=== PATIENT | male | born 1955 | race American Indian/Alaskan Native ===

== ENCOUNTER 2018-12-24 08:58 | Outpatient (CLI) | payer MEDICARE | END 2018-12-24 08:59 | disposition home or self-care (01) | LOC: C.LAB 08:58 | DX: E11.65 Type 2 diabetes mellitus with hyperglycemia (principal); E78.00 Pure hypercholesterolemia, unspecified; D50.8 Other iron deficiency anemias; E53.8 Deficiency of other specified B group vitamins ==

== ENCOUNTER 2018-12-24 09:05 | Outpatient (CLI) | payer MEDICARE | END 2018-12-24 09:06 | disposition home or self-care (01) | LOC: C.LAB 09:05 | DX: Z12.5 Encounter for screening for malignant neoplasm of prostate (principal) ==

== ENCOUNTER 2019-01-24 09:22 | Inpatient (IN) | payer MEDICARE ==
[2019-01-24] MEDS ORDERED: Sodium Chloride 0.9% 1,000 ML IV ONE (09:59)
[2019-01-24 10:22] LABS: BASO % 0.7 % (0.0-2.0); EOS # 0.1 K/uL (0.0-0.7); EOS % 1.9 % (0.0-4.0); HEMOGLOBIN 11.5 g/dL (12.0-18.0); LYMPH # 1.2 K/uL (1.0-4.3); LYMPH % 24.6 % (20.0-40.0); MEAN CELL VOLUME 73.4 fL (80.0-94.0); MEAN CORPUSCULAR HEMOGLOBIN 23.3 pg (27.0-31.0); MEAN CORPUSCULAR HGB CONC 31.8 g/dL (33.0-37.0); MEAN PLATELET VOLUME 8.7 fL (7.2-11.7); MONO # 0.5 K/uL (0.0-0.8); MONO % 9.8 % (0.0-10.0); NEUT # 3.2 K/uL (1.8-7.0); NRBC % 0.1 % (0.0-2.0); RBC 4.93 Mil/uL (4.40-5.90); RED CELL DISTRIBUTION WIDTH 14.1 % (11.5-14.5)
[2019-01-24] MEDS ORDERED: Sodium Chloride 0.9% 1,000 ML ONE (10:22)
[2019-01-24 10:31] LABS: PROTHROMBIN TIME 10.4 SECONDS (9.7-12.2)
--- NOTE | 2019-01-24 10:32 | C.PDOC ---
History Of Present Illness 63 year old male w/PMHx of HTN, NIDDM, hypercholesterolemia presents to the ED for evaluation of intermittent chest pain which began yesterday evening " was watching TV". Patient reports pain associated with intermittent dizziness. He describes his symptoms as a painful/burning sensation in middle of chest. Otherwise, patient denies recent illness, fever, chills, headache, neck pain, shortness of breath, dypsnea, wheezing, palpitation, diaphoresis, radiation of pain, denies nausea, vomiting, back pian, denies any aotehr active complaints. AT present time, appears comfortable, not in any apparent distress. Pt admits, had stress test in past, last one was 8 mo ago- normal results. Time Seen by Provider: 01/24/19 09:37 Chief Complaint (Nursing): Chest Pain History Per: Patient History/Exam Limitations: no limitations Onset/Duration Of Symptoms: Hrs, Intermittent Episodes Current Symptoms Are (Timing): Still Present Quality: Burning, "Pain" Associated Symptoms: denies: Nausea Additional History Per: Patient Past Medical History Reviewed: Historical Data, Nursing Documentation, Vital Signs Vital Signs: Last Vital Signs Temp 98.2 F 01/24/19 09:55 Pulse Resp BP Pulse Ox - Medical History PMH: HTN, Hypercholesterolemia Surgical History: Back Surgery (LUMBAR LAMINECTOMY) Family History: States: Unknown Family Hx - Social History Hx Alcohol Use: No Hx Substance Use: No - Immunization History Hx Tetanus Toxoid Vaccination: No Hx Influenza Vaccination: No Hx Pneumococcal Vaccination: No Review Of Systems Constitutional: Negative for: Fever, Chills Cardiovascular: Positive for: Chest Pain Respiratory: Negative for: Cough, Shortness of Breath Gastrointestinal: Negative for: Nausea, Vomiting Neurological: Positive for: Dizziness. Negative for: Weakness, Numbness Physical Exam - Physical Exam Appears: Non-toxic, No Acute Distress Skin: Normal Color, Warm, Dry Head: Normacephalic Eye(s): bilateral: PERRL Oral Mucosa: Moist Neck: Supple Chest: Symmetrical, No Deformity, Tenderness (reproducible retrosternal tenderness on palpation ) Cardiovascular: Rhythm Regular, No Murmur, No JVD Respiratory: No Decreased Breath Sounds, No Accessory Muscle Use, No Rales, No Rhonchi, No Stridor, No Wheezing Gastrointestinal/Abdominal: Soft, No Tenderness, No Distention, No Guarding, No Rebound Back: No CVA Tenderness Extremity: Normal ROM, No Pedal Edema, Capillary Refill (less than 2 seconds ), No Swelling Neurological/Psych: Oriented x3, Normal Speech, Normal Cognition ED Course And Treatment - Laboratory Results Result Diagrams: 01/24/19 10:17 01/24/19 10:17 Lab Results: PT 10.4 SECONDS (9.7-12.2) 01/24/19 10:17 INR 1.0 01/24/19 10:17 APTT 29 SECONDS (21-34) 01/24/19 10:17 Lab Interpretation: Normal ECG: Interpreted By Me, Viewed By Me ECG Rhythm: Sinus Rhythm ECG Interpretation: Normal Interpretation Of ECG: SR@74/min, NAD, no acute T wave or ST-T changes - Radiology CXR: Interpreted by Me, Viewed By Me, Read By Radiologist CXR Interpretation: Yes: No Acute Disease Progress Note: Bloodwork, CXR, EKG ordered and reviewed. Pepcid IVP, Toradol IVP and IV Fluids given. case discussed with pt's PMD and admission arranged with Dx: CP r/o ND based on pt's hx, risk factors, clinical presentation. Disposition - Disposition Disposition: HOSPITALIZED Disposition Time: 11:11 Condition: STABLE - Clinical Impression Clinical Impression: Chest pain - PA / CLIPPER OPERATOR / Resident Statement MD/DO has reviewed & agrees with the documentation as recorded. - Scribe Statement The provider has reviewed the documentation as recorded by the Scribe (Tali Roth) All medical record entries made by the Scribe were at my direction and personal ly dictated by me. I have reviewed the chart and agree that the record accurately reflects my personal performance of the history, physical exam, medical decision making, and the department course for this patient. I have also personally directed, reviewed, and agree with the discharge instructions and disposition.
[2019-01-24 10:34] LABS: ALB/GLOB RATIO 1.6 (1.0-2.1); ALBUMIN 4.4 g/dL (3.5-5.0); ALT/SGPT 18 U/L (21-72); AST/SGOT 24 U/L (17-59); BLOOD UREA NITROGEN 18 mg/dL (9-20); CALCIUM 9.6 mg/dl (8.6-10.4); GFR NON-AFRICAN AMERICAN > 60
--- NOTE | 2019-01-24 10:37 | RAD ---
Date of service: 01/24/2019 PROCEDURE: CHEST RADIOGRAPH, 1 VIEW HISTORY: chest pain COMPARISON: 11/12/2016 FINDINGS: LUNGS: Clear. PLEURA: No pneumothorax or pleural fluid seen. CARDIOVASCULAR: No aortic atherosclerotic calcification present. Normal. OSSEOUS STRUCTURES: No significant abnormalities. VISUALIZED UPPER ABDOMEN: Normal. OTHER FINDINGS: None. IMPRESSION: No active disease.
[2019-01-24 10:46] LABS: B-TYPE NATRIURETIC PEPTIDE 137 pg/mL (0-900)
[2019-01-24 17:01] LABS: CK-MB 0.26 ng/mL (0.0-3.38)
[2019-01-24] MEDS ORDERED: Oxycodone/Acetaminophen 5/325 mg Tab PO ONE (17:30)
[2019-01-24] MEDS: Enoxaparin 60 mg Syringe SC SCH ×2 (18:00→19:00)
[2019-01-24] MEDS ORDERED: Enoxaparin 60 mg Syringe SC SCH (21:00)
[2019-01-24] MEDS: Sodium Chloride 0.9% 1,000 ML IV SCH (21:13)
[2019-01-24] MEDS: (Novolin R) Insulin Human Regular 100 units/ml vial SC SCH (23:00)
--- NOTE | 2019-01-24 23:53 | HP ---
HISTORY OF PRESENT ILLNESS: This is a 63-year-old gentleman with a history of diabetes, hypertension, severe back problems who was brought in with history of chest pain. The patient had a Myoview stress test, and about a year ago, Lexiscan which was unremarkable. Echocardiogram had normal LV systolic function. He was in usual state of health for 2 days when he started to experience chest discomfort, described as burning, no radiation. The pains are more exertional also. REVIEW OF SYSTEMS: CONSTITUTIONAL: Mild fatigue, otherwise, unremarkable. EYES: Wears glasses. EARS: Positive for hearing loss. NECK: No swollen glands. PULMONARY: Negative for cough or hemoptysis. CARDIAC: As mentioned above chest discomfort, shortness of breath on exertion. History of hypertension. GI: Negative for hematemesis or melena. NEUROLOGIC: Occasional headaches. MUSCULOSKELETAL: Severe back problems, joint pains, walks with a cane. PSYCHIATRIC: No evidence of depression. EXTREMITIES: No pedal edema. PAST MEDICAL HISTORY: Positive for diabetes, hypertension, admitted in the past also for chest pain. PAST SURGICAL HISTORY: History of surgery for the back in [facility] and also at [facility]. PHYSICAL EXAMINATION: GENERAL: Shows elderly gentleman who is conscious, alert, well oriented, in no distress. VITAL SIGNS: His blood pressure is 136/70, heart rate of 74 and regular, respiratory rate 12, afebrile. He is 5 feet 11 inches, weighs 190 pounds. HEENT: Head is normal. Eyes, no pallor, no icterus. Mouth normal. NECK: Supple. No thyroid enlargement. LUNGS: Clear to auscultation. HEART: PMI is normal. S1, S2 normal. Soft S4 gallop. Systolic ejection grade 2/6 in the aortic and mitral area. ABDOMEN: Soft. EXTREMITIES: No cyanosis, clubbing, or edema. MUSCULOSKELETAL: surgery in the back. Distal pulses are intact. NEUROLOGIC: No focal signs. LABORATORY DATA: CBC, chemistry was unremarkable as per ER physician. EKG is sinus rhythm. ASSESSMENT: A 63-year-old male, this is second admission for chest pain, the pains are exertional at times. No myocardial infarction. Recommend giving the history of diabetes, hypertension, and unable to walk, uses a cane with severe back problems, we will recommend to have a diagnostic coronary angiogram for definite evaluation. There was some exertional component. The medications at home include amlodipine 5 mg one a day, Benicar 12.5 one a day, Coreg 6.25 twice a day, Metformin 1000 mg twice a day, Protonix, and Zocor 20 mg p.o. one a day. Care of plan was explained to the patient. Manuel Kasper MD
--- NOTE | 2019-01-25 07:22 | CP.PCM.CON ---
History of Present Illness - History of Present Illness History of Present Illness: called by Dr Kasper to perform cardiac cath on patient with ultiple cardiovascular risk factors who presents with unstable angina. NPO after breakfast for cardiac cath today Past Patient History - Past Social History Smoking Status: Never Smoked - CARDIAC Hx Hypercholesterolemia: Yes Hx Hypertension: Yes - ENDOCRINE/METABOLIC Hx Endocrine Disorders: Yes Hx Diabetes Mellitus Type 1: Yes - PSYCHIATRIC Hx Substance Use: No - SURGICAL HISTORY Hx Surgeries: Yes Other/Comment: laminectomy;fusion of the back - ANESTHESIA Hx Anesthesia: Yes Hx Anesthesia Reactions: No Hx Malignant Hyperthermia: No Meds Allergies/Adverse Reactions: Allergies Allergy/AdvReac Type Severity Reaction Status Date / Time No Known Allergies Allergy Verified 01/24/19 09:46 - Medications Medications: Current Medications Acetaminophen (Tylenol 325mg Tab) 650 mg PO QID [facility] Last Admin: 01/24/19 21:12 Dose: 650 mg Amlodipine Besylate (Norvasc) 5 mg PO DAILY [facility] Carvedilol (Coreg) 6.25 mg PO BID [facility] Last Admin: 01/24/19 19:00 Dose: 6.25 mg Enoxaparin Sodium (Lovenox) 60 mg SC Q12H [facility] Last Admin: 01/24/19 22:04 Dose: 60 mg Sodium Chloride (Sodium Chloride 0.9%) 1,000 mls @ 50 mls/hr IV .Q20H [facility] Last Admin: 01/24/19 21:13 Dose: 50 mls/hr Insulin Human Regular (Novolin R) 0 unit SC ACHS [facility]; Protocol Last Admin: 01/24/19 23:00 Dose: Not Given Losartan Potassium (Cozaar) 100 mg PO DAILY [facility] Rosuvastatin Calcium (Crestor) 20 mg PO HS [facility] Last Admin: 01/24/19 21:12 Dose: 20 mg Sitagliptin Phosphate (Januvia) 50 mg PO DAILY [facility] Results - Vital Signs Recent Vital Signs: Last Vital Signs Temp 97.9 F 01/25/19 04:00 Pulse 67 01/25/19 04:05 Resp 20 01/25/19 04:00 BP 126/86 01/25/19 04:00 Pulse Ox 98 01/25/19 04:00 - Labs Result Diagrams: 01/24/19 10:17 01/24/19 10:17 Labs: Laboratory Results - last 24 hr 01/24/19 01/24/19 01/24/19 10:17 10:17 10:17 WBC 5.0 RBC 4.93 Hgb 11.5 L Hct 36.2 MCV 73.4 L MCH 23.3 L MCHC 31.8 L RDW 14.1 Plt Count 249 MPV 8.7 Neut % (Auto) 63.0 Lymph % (Auto) 24.6 Forrest % (Auto) 9.8 Eos % (Auto) 1.9 Baso % (Auto) 0.7 Neut # (Auto) 3.2 Lymph # (Auto) 1.2 Forrest # (Auto) 0.5 Eos # (Auto) 0.1 Baso # (Auto) 0.0 PT 10.4 INR 1.0 APTT 29 Sodium 138 Potassium 3.6 Chloride 100 Carbon Dioxide 30 Anion Gap 11 BUN 18 Creatinine 1.1 Est GFR ( Amer) > 60 Est GFR (Non-Af Amer) > 60 POC Glucose (mg/dL) Random Glucose 206 H D Calcium 9.6 Total Bilirubin 0.4 AST 24 ALT 18 L Alkaline Phosphatase 55 Total Creatine Kinase CK-MB (Mass) Troponin I < 0.0120 NT-Pro-B Natriuret Pep 137 Total Protein 7.3 Albumin 4.4 Globulin 2.8 Albumin/Globulin Ratio 1.6 01/24/19 01/24/19 01/25/19 16:25 20:49 06:24 WBC RBC Hgb Hct MCV MCH MCHC RDW Plt Count MPV Neut % (Auto) Lymph % (Auto) Forrest % (Auto) Eos % (Auto) Baso % (Auto) Neut # (Auto) Lymph # (Auto) Forrest # (Auto) Eos # (Auto) Baso # (Auto) PT INR APTT Sodium Potassium Chloride Carbon Dioxide Anion Gap BUN Creatinine Est GFR ( Amer) Est GFR (Non-Af Amer) POC Glucose (mg/dL) 135 H 120 H Random Glucose Calcium Total Bilirubin AST ALT Alkaline Phosphatase Total Creatine Kinase 45 L CK-MB (Mass) 0.26 Troponin I < 0.0120 NT-Pro-B Natriuret Pep Total Protein Albumin Globulin Albumin/Globulin Ratio
[2019-01-25] MEDS: (Novolin R) Insulin Human Regular 100 units/ml vial SC SCH ×4 (07:35→22:23)
--- NOTE | 2019-01-25 12:11 | CARD ---
APPROVED REPORT Date of service: 01/24/2019 EKG Measurement Heart [id number] <Conclusion> Sinus rhythm with 1st degree AV block with premature atrial complexes Otherwise normal ECG
--- NOTE | 2019-01-25 12:11 | CARD ---
APPROVED REPORT Date of service: 01/24/2019 EKG Measurement Heart [id number] <Conclusion> Normal sinus rhythm Normal ECG
[2019-01-25] MEDS: Sodium Chloride 0.9% 1,000 ML IV SCH (13:40)
[2019-01-25] MEDS ORDERED: Heparin25000 units/250ml 1/2NS 25,000 UNITS/250 ML BAG IV PRN (17:57)
--- NOTE | 2019-01-25 18:01 | CP.PCM.CON ---
<Jaya Kasper M - Last Filed: 01/25/19 18:28> History of Present Illness - History of Present Illness History of Present Illness: Critical care consult for Dr. Gregory. Consult for unstable angina. 63 M w/ PMhx of HTN, NIDDM, HLD, admitted for intermittent chest pain & dizziness X 1 day, associated with midsternal burning sensation. Patient was scheduled for cardiac cath today when patient began having chest pain. Patient stated 10/10 mid sternal chest pain radiating to L shoulder. Patient denies nausea, vomiting, SOB. Patient given 1 X morphine and sublingual nitro with relieve of pain to 2/10. No EKG changes from previous EKG. Patient unable to go for cardiac cath due to equipment issues. Patient transfered to ICU for further monitoring. ROS: Denies headaches, vision changes, fevers, chills, SOB, cough, abdominal pain, nausea, vomiting, constipation, diarrhea, leg pain PMHx: HTN, NIDDM, HLD Meds: See EMR Allergies: NKDA PSHx: Previous back surgery in lumbar region SHx: 2 pack year hx, denies ETOH, denies illicit drug use Review of Systems - Constitutional Constitutional: absent: Anorexia, Chills - EENT Eyes: absent: Diplopia, Discharge Nose/Mouth/Throat: absent: Nasal Congestion, Nose Pain - Cardiovascular Cardiovascular: Chest Pain, Chest Pain at Rest. absent: Dyspnea - Respiratory Respiratory: absent: Cough, Dyspnea, Snoring - Gastrointestinal Gastrointestinal: absent: Diarrhea, Excessive Flatus - Genitourinary Genitourinary: absent: Change in Urinary Stream - Musculoskeletal Musculoskeletal: absent: Arthralgias, Joint Swelling, Muscle Weakness - Neurological Neurological: absent: Abnormal Hearing, Dizziness, Headaches - Endocrine Endocrine: absent: Deepening of Voice Past Patient History - Past Social History Smoking Status: Never Smoked - CARDIAC Hx Hypercholesterolemia: Yes Hx Hypertension: Yes - ENDOCRINE/METABOLIC Hx Endocrine Disorders: Yes Hx Diabetes Mellitus Type 1: Yes - PSYCHIATRIC Hx Substance Use: No - SURGICAL HISTORY Hx Surgeries: Yes Other/Comment: laminectomy;fusion of the back - ANESTHESIA Hx Anesthesia: Yes Hx Anesthesia Reactions: No Hx Malignant Hyperthermia: No Meds Allergies/Adverse Reactions: Allergies Allergy/AdvReac Type Severity Reaction Status Date / Time No Known Allergies Allergy Verified 01/24/19 09:46 - Medications Medications: Current Medications Acetaminophen (Tylenol 325mg Tab) 650 mg PO QID [facility] Last Admin: 01/25/19 13:53 Dose: Not Given Amlodipine Besylate (Norvasc) 5 mg PO DAILY [facility] Last Admin: 01/25/19 09:17 Dose: 5 mg Carvedilol (Coreg) 6.25 mg PO BID [facility] Last Admin: 01/25/19 09:16 Dose: 6.25 mg Enoxaparin Sodium (Lovenox) 60 mg SC Q12H [facility] Last Admin: 01/24/19 22:04 Dose: 60 mg Sodium Chloride (Sodium Chloride 0.9%) 1,000 mls @ 50 mls/hr IV .Q20H [facility] Last Admin: 01/25/19 13:40 Dose: Not Given Heparin Sodium/Sodium Chloride (Heparin 06962 Units/250ml 1/2 Normal Saline) 25,000 units in 250 mls @ 10.723 mls/hr IV .[id number] PRN; Protocol PRN Reason: ADJUST RATE PER PROTOCOL Influenza Virus Vaccine (Flucelvax Quad [id number] Syr) 60 mcg IM .ONCE ONE Stop: 01/26/19 10:01 Insulin Human Regular (Novolin R) 0 unit SC ACHS [facility]; Protocol Last Admin: 01/25/19 15:56 Dose: Not Given Losartan Potassium (Cozaar) 100 mg PO DAILY [facility] Last Admin: 01/25/19 09:17 Dose: 100 mg Pneumococcal Polyvalent Vaccine (Pneumovax 23 Vaccine) 0.5 ml IM .ONCE ONE Stop: 01/26/19 10:01 Rosuvastatin Calcium (Crestor) 20 mg PO [facility] Last Admin: 01/24/19 21:12 Dose: 20 mg Sitagliptin Phosphate (Januvia) 50 mg PO DAILY [facility] Last Admin: 01/25/19 09:25 Dose: Not Given Physical Exam - Head Exam Head Exam: NORMAL INSPECTION - Eye Exam Eye Exam: EOMI, Normal appearance - ENT Exam ENT Exam: Mucous Membranes Moist - Respiratory Exam Respiratory Exam: Clear to Auscultation Bilateral, NORMAL BREATHING PATTERN. absent: Rales, Rhonchi, Wheezes - Cardiovascular Exam Cardiovascular Exam: +S1, +S2. absent: Systolic Murmur - GI/Abdominal Exam GI & Abdominal Exam: Normal Bowel Sounds, Soft. absent: Distended, Firm - Extremities Exam Extremities exam: Positive for: full ROM, normal inspection. Negative for: calf tenderness, pedal edema - Back Exam Back exam: absent: CVA tenderness (L), CVA tenderness (R) - Neurological Exam Neurological exam: Alert, Normal Gait, Oriented x3 - Psychiatric Exam Psychiatric exam: Normal Affect, Normal Mood - Skin Skin Exam: Dry, Intact, Normal Color, Warm Results - Vital Signs Recent Vital Signs: Last Vital Signs Temp 98.1 F 01/25/19 15:51 Pulse 66 01/25/19 15:51 Resp 20 01/25/19 15:51 BP 141/97 H 01/25/19 15:51 Pulse Ox 96 01/25/19 15:51 - Labs Result Diagrams: 01/24/19 10:17 01/24/19 10:17 Labs: Laboratory Results - last 24 hr 01/24/19 01/25/19 01/25/19 20:49 06:24 11:31 POC Glucose (mg/dL) 135 H 120 H 150 H 01/25/19 16:53 POC Glucose (mg/dL) 125 H Assessment & Plan - Assessment and Plan (Free Text) Assessment: 63 M w/ PMhx of HTN, DM, HLD admitted for chest pain, cardiac cath on 01/25 cancelled due to equipment failure, here in ICU for unstable angina, starting heparin drip w/ plavix, aspirin loading dose; currently negative troponins Plan: Neuro - A&O x 3 Cardio - unstable angina, improving chest pain - heparin bolus w/ heparin drip, plavix 300mg PO, aspirin 325 mg PO - c/w coreg 6.25 mg BID, amlodipine 5 mg PO daily, losartan 100 mg PO daily - c/w rosuvastatin 20 mg PO HS Pulm - vitals WNL - continue to monitor GI - Heart healthy diet - NPO past MN for possible cardiac cath tomorrow - voiding freely - continue to monitor Heme - H/H 11.5/36.2 - continue to monitor Endo - hx of diabetes - hold oral meds - ISS low - accuchecks - hypoglycemic protocol Renal - Bun/Cr WNL - continue to monitor PPx - DVT: SCDs - GI: Pepcid 20mg daily <Ernesto Gregory - Last Filed: 01/25/19 18:45> Meds - Medications Medications: Current Medications Acetaminophen (Tylenol 325mg Tab) 650 mg PO QID [facility] Last Admin: 01/25/19 18:30 Dose: Not Given Amlodipine Besylate (Norvasc) 5 mg PO DAILY [facility] Last Admin: 01/25/19 09:17 Dose: 5 mg Carvedilol (Coreg) 6.25 mg PO BID [facility] Last Admin: 01/25/19 18:43 Dose: 6.25 mg Dextrose (Dextrose 50% Inj) 0 ml IV STAT PRN; Protocol PRN Reason: Hypoglycemia Protocol Dextrose (Glutose 15) 0 gm PO ONCE PRN; Protocol PRN Reason: Hypoglycemia Protocol Famotidine (Pepcid) 20 mg PO DAILY [facility] Glucagon (Glucagen Diagnostic Kit) 0 mg IM STAT PRN; Protocol PRN Reason: Hypoglycemia Protocol Sodium Chloride (Sodium Chloride 0.9%) 1,000 mls @ 50 mls/hr IV .Q20H [facility] Last Admin: 01/25/19 13:40 Dose: Not Given Heparin Sodium/Sodium Chloride (Heparin 65600 Units/250ml 1/2 Normal Saline) 25,000 units in 250 mls @ 10.723 mls/hr IV .[id number] PRN; Protocol PRN Reason: ADJUST RATE PER PROTOCOL Dextrose (Dextrose 5% In Water 1000 Ml) 1,000 mls @ 0 mls/hr IV .Q0M PRN; Protocol PRN Reason: Hypoglycemia Protocol Influenza Virus Vaccine (Flucelvax Quad [id number] Syr) 60 mcg IM .ONCE ONE Stop: 01/26/19 10:01 Insulin Human Regular (Novolin R) [address] [facility]; Protocol Last Admin: 01/25/19 15:56 Dose: Not Given Losartan Potassium (Cozaar) 100 mg PO DAILY [facility] Last Admin: 01/25/19 09:17 Dose: 100 mg Pneumococcal Polyvalent Vaccine (Pneumovax 23 Vaccine) 0.5 ml IM .ONCE ONE Stop: 01/26/19 10:01 Rosuvastatin Calcium (Crestor) 20 mg PO HS [facility] Last Admin: 01/24/19 21:12 Dose: 20 mg Sitagliptin Phosphate (Januvia) 50 mg PO DAILY [facility] Last Admin: 01/25/19 09:25 Dose: Not Given Results - Vital Signs Recent Vital Signs: Last Vital Signs Temp 98.1 F 01/25/19 15:51 Pulse 66 02/26/19 15:51 Resp 20 01/25/19 15:51 BP 141/97 H 01/25/19 15:51 Pulse Ox 96 01/25/19 15:51 - Labs Result Diagrams: 01/24/19 10:17 01/24/19 10:17 Labs: Laboratory Results - last 24 hr 01/24/19 01/25/19 01/25/19 20:49 06:24 11:31 POC Glucose (mg/dL) 135 H 120 H 150 H Troponin I 01/25/19 01/25/19 16:53 17:34 POC Glucose (mg/dL) 125 H Troponin I < 0.0120 Attending/Attestation - Attestation I have personally seen and examined this patient.: Yes I have fully participated in the care of the patient.: Yes I have reviewed all pertinent clinical information: Yes Notes (Text): 01/25/19 18:44 Patient seen and examined 63-year-old male admitted for cardiac cath and transfer to intensive care unit for chest pain Patient started on IV heparin Plavix and aspirin given Serum troponin Case discussed with cardiology Possible cardiac cath tomorrow
[2019-01-25] MEDS ORDERED: Glucagon Recombinant 1 mg Inj IM PRN (18:03)
[2019-01-25] MEDS ORDERED: Dextrose 50% SYRINGE Inj (50 ml) IV PRN (18:03)
--- NOTE | 2019-01-25 20:47 | CP.PCM.PN ---
Subjective - Date & Time of Evaluation Date of Evaluation: 01/25/19 Time of Evaluation: 20:45 - Subjective Subjective: recurrent chest pains.label maker machine broke.transfered to icu. Objective - Vital Signs/Intake and Output Vital Signs (last 24 hours): Temp Pulse Resp BP Pulse Ox 98.5 F 74 16 126/86 97 01/25/19 18:15 01/25/19 18:12 01/25/19 18:12 01/25/19 18:12 01/25/19 18:15 Intake and Output: 01/25/19 01/26/19 18:59 06:59 Intake Total 0 Output Total 200 Balance -200 - Medications Medications: Current Medications Acetaminophen (Tylenol 325mg Tab) 650 mg PO QID [facility] Last Admin: 01/25/19 18:30 Dose: Not Given Amlodipine Besylate (Norvasc) 5 mg PO DAILY [facility] Last Admin: 01/25/19 09:17 Dose: 5 mg Carvedilol (Coreg) 6.25 mg PO BID [facility] Last Admin: 01/25/19 18:43 Dose: 6.25 mg Dextrose (Dextrose 50% Inj) 0 ml IV STAT PRN; Protocol PRN Reason: Hypoglycemia Protocol Dextrose (Glutose 15) 0 gm PO ONCE PRN; Protocol PRN Reason: Hypoglycemia Protocol Famotidine (Pepcid) 20 mg PO DAILY [facility] Glucagon (Glucagen Diagnostic Kit) 0 mg IM STAT PRN; Protocol PRN Reason: Hypoglycemia Protocol Sodium Chloride (Sodium Chloride 0.9%) 1,000 mls @ 50 mls/hr IV .Q20H [facility] Last Admin: 01/25/19 13:40 Dose: Not Given Heparin Sodium/Sodium Chloride (Heparin 79638 Units/250ml 1/2 Normal Saline) 25,000 units in 250 mls @ 10.723 mls/hr IV .[id number] PRN; Protocol PRN Reason: ADJUST RATE PER PROTOCOL Last Admin: 01/25/19 18:44 Dose: 12 units/kg/hr, 10.723 mls/hr Dextrose (Dextrose 5% In Water 1000 Ml) 1,000 mls @ 0 mls/hr IV .Q0M PRN; Protocol PRN Reason: Hypoglycemia Protocol Influenza Virus Vaccine (Flucelvax Quad [id number] Syr) 60 mcg IM .ONCE ONE Stop: 01/26/19 10:01 Insulin Human Regular (Novolin R) 0 unit SC ACHS [facility]; Protocol Last Admin: 01/25/19 15:56 Dose: Not Given Losartan Potassium (Cozaar) 100 mg PO DAILY [facility] Last Admin: 01/25/19 09:17 Dose: 100 mg Pneumococcal Polyvalent Vaccine (Pneumovax 23 Vaccine) 0.5 ml IM .ONCE ONE Stop: 01/26/19 10:01 Rosuvastatin Calcium (Crestor) 20 mg PO HS [facility] Last Admin: 01/24/19 21:12 Dose: 20 mg Sitagliptin Phosphate (Januvia) 50 mg PO DAILY [facility] Last Admin: 01/25/19 09:25 Dose: Not Given - Labs Labs: 01/24/19 10:17 01/24/19 10:17 PT 10.4 SECONDS (9.7-12.2) 01/24/19 10:17 INR 1.0 01/24/19 10:17 APTT 29 SECONDS (21-34) 01/24/19 10:17 - Constitutional Appears: No Acute Distress - Eye Exam Eye Exam: Normal appearance - Neck Exam Neck Exam: Normal Inspection - Respiratory Exam Respiratory Exam: Clear to Ausculation Bilateral - Cardiovascular Exam Cardiovascular Exam: REGULAR RHYTHM, Murmur - GI/Abdominal Exam GI & Abdominal Exam: Soft - Extremities Exam Extremities Exam: absent: Pedal Edema - Neurological Exam Neurological Exam: Alert, Oriented x3 Assessment and Plan - Assessment and Plan (Free Text) Plan: recurrent chest pains.needs [place]io[place] [place]
[2019-01-25 23:17] LABS: CK-MB 0.28 ng/mL (0.0-3.38)
[2019-01-26 06:13] LABS: BASO % 0.7 % (0.0-2.0); EOS # 0.1 K/uL (0.0-0.7); EOS % 3.4 % (0.0-4.0); HEMOGLOBIN 11.5 g/dL (12.0-18.0); LYMPH # 1.7 K/uL (1.0-4.3); LYMPH % 39.5 % (20.0-40.0); MEAN CELL VOLUME 74.2 fL (80.0-94.0); MEAN CORPUSCULAR HEMOGLOBIN 23.1 pg (27.0-31.0); MEAN CORPUSCULAR HGB CONC 31.2 g/dL (33.0-37.0); MEAN PLATELET VOLUME 8.7 fL (7.2-11.7); MONO # 0.5 K/uL (0.0-0.8); MONO % 12.5 % (0.0-10.0); NEUT # 1.9 K/uL (1.8-7.0); NEUT % 43.9 % (50.0-75.0); NRBC % 0.2 % (0.0-2.0); RBC 4.98 Mil/uL (4.40-5.90); RED CELL DISTRIBUTION WIDTH 14.3 % (11.5-14.5); WHITE BLOOD COUNT 4.3 K/uL (4.8-10.8)
[2019-01-26 06:35] LABS: CK-MB 0.25 ng/mL (0.0-3.38)
[2019-01-26 06:40] LABS: ALB/GLOB RATIO 1.4 (1.0-2.1); ALBUMIN 3.9 g/dL (3.5-5.0); ALT/SGPT 10 U/L (21-72); AST/SGOT 29 U/L (17-59); BLOOD UREA NITROGEN 24 mg/dL (9-20); CALCIUM 8.6 mg/dl (8.6-10.4); GFR NON-AFRICAN AMERICAN > 60
--- NOTE | 2019-01-26 07:36 | CP.CCUPN ---
<Jaya Kasper M - Last Filed: 01/26/19 13:26> CCU Subjective - Physician Review Subjective (Free Text): Critical care progress note for Dr. Gregory. Patient seen and examined at bedside. No overnight events. Overnight troponins negative X 3 and patient offers no complaints this AM. Denies headaches, vision changes, chest pain, SOB, nausea, vomiting, abdominal pain, diarrhea, constipation. Patient was unable to obtain cardiac cath yesterday due to equipment issues. Patient was transferred to ICU for chest pain. Troponins X3 negative. [place] [facility] [place] Objective - Vital Signs / Intake & Output Vital Signs (Last 4 hours): Vital Signs Temp Pulse Resp BP Pulse Ox 01/26/19 06:05 125/94 H 01/26/19 06:00 62 17 97 01/26/19 05:05 67 14 140/99 H 96 01/26/19 04:05 144/94 H 01/26/19 04:00 98 F 63 13 97 Intake and Output (Last 8hrs): Intake & Output 01/25/19 01/26/19 01/26/19 22:59 06:59 14:59 Intake Total 522.1 296.3 Output Total 350 450 Balance 172.1 -153.7 Weight 197 lb 5.019 oz 197 lb 1.492 oz Intake: Intake, IV Amount 32.1 96.3 Right Wrist 32.1 96.3 Oral 490 200 Output: Urine 350 450 Urine, Voided 350 450 Other: Voiding Method Urinal # Voids Urine, Voided 0 0 # Bowel Movements 0 0 - Physical Exam Head: Positive for: Atraumatic, Normocephalic Pupils: Positive for: PERRL Extroacular Muscles: Positive for: EOMI Conjunctiva: Positive for: Normal Mouth: Positive for: Moist Mucous Membranes Neck: Positive for: Normal Range of Motion Respiratory/Chest: Positive for: Clear to Auscultation, Decreased Breath Sounds. Negative for: Respiratory Distress, Accessory Muscle Use Cardiovascular: Positive for: Normal S1, S2. Negative for: Murmurs Abdomen: Positive for: Normal Bowel Sounds. Negative for: Tenderness, Distention, Guarding Upper Extremity: Positive for: Normal Inspection. Negative for: Edema Lower Extremity: Positive for: Normal Inspection. Negative for: Edema Neurological: Positive for: GCS=15 Skin: Positive for: Warm, Dry, Rashes Psychiatric: Positive for: Alert, Oriented x 3 - Medications Active Medications: Active Medications Generic Name Dose Route Start Last Admin Trade Name Freq PRN Reason Stop Dose Admin Acetaminophen 650 mg 01/24/19 18:00 01/25/19 22:22 Tylenol 325mg Tab PO 650 mg QID ALBINO Administration Amlodipine Besylate 5 mg 01/25/19 10:00 01/25/19 09:17 Norvasc PO 5 mg DAILY ALBINO Administration Carvedilol 6.25 mg 01/24/19 18:00 01/25/19 18:43 Coreg PO 6.25 mg BID ALBINO Administration Dextrose 0 ml 01/25/19 18:03 Dextrose 50% Inj IV STAT PRN Hypoglycemia Protocol Protocol Dextrose 0 gm 01/25/19 18:03 Glutose 15 PO ONCE PRN Hypoglycemia Protocol Protocol Famotidine 20 mg 01/26/19 10:00 Pepcid PO DAILY ALBINO Glucagon 0 mg 01/25/19 18:03 Glucagen Diagnostic Kit IM STAT PRN Hypoglycemia Protocol Protocol Sodium Chloride 1,000 mls @ 50 mls/hr 01/24/19 17:15 01/25/19 13:40 Sodium Chloride 0.9% IV Not Given .Q20H ALBINO Heparin Sodium/Sodium Chloride 25,000 units in 250 mls @ 10.723 mls/hr 01/25/19 17:57 01/25/19 18:44 Heparin 00419 Units/250ml 1/2 Normal Saline IV 12 units/kg/hr .[id number] PRN 10.723 mls/hr ADJUST RATE PER PROTOCOL Administration Protocol 12 UNITS/KG/HR Dextrose 1,000 mls @ 0 mls/hr 01/25/19 18:03 Dextrose 5% In Water 1000 Ml IV .Q0M PRN Hypoglycemia Protocol Protocol Per Protocol Influenza Virus Vaccine 60 mcg 01/26/19 10:00 Flucelvax Quad [id number] Syr IM 01/26/19 10:01 .ONCE ONE Insulin Human Regular 0 unit 01/24/19 22:00 01/25/19 22:23 Novolin R SC Not Given ACHS [facility] Protocol Losartan Potassium 100 mg 01/25/19 10:00 01/25/19 09:17 Cozaar PO 100 mg DAILY ALBINO Administration Pneumococcal Polyvalent Vaccine 0.5 ml 01/26/19 10:00 Pneumovax 23 Vaccine IM 01/26/19 10:01 .ONCE ONE Rosuvastatin Calcium 20 mg 01/24/19 22:00 01/25/19 22:22 Crestor PO 20 mg HS ALBINO Administration Sitagliptin Phosphate 50 mg 01/25/19 10:00 01/25/19 09:25 Januvia PO Not Given DAILY ALBINO - Patient Studies Lab Studies: Lab Studies 01/26/19 01/26/19 01/26/19 Range/Units 06:05 06:05 01:37 WBC 4.3 L (4.8-10.8) K/uL RBC 4.98 (4.40-5.90) Mil/uL Hgb 11.5 L (12.0-18.0) g/dL Hct 36.9 (35.0-51.0) % MCV 74.2 L (80.0-94.0) fL MCH 23.1 L (27.0-31.0) pg MCHC 31.2 L (33.0-37.0) g/dL RDW 14.3 (11.5-14.5) % Plt Count 227 (130-400) K/uL MPV 8.7 (7.2-11.7) fL Neut % (Auto) 43.9 L (50.0-75.0) % Lymph % (Auto) 39.5 (20.0-40.0) % [place] % (Auto) 12.5 H (0.0-10.0) % Eos % (Auto) 3.4 (0.0-4.0) % Baso % (Auto) 0.7 (0.0-2.0) % Neut # (Auto) 1.9 (1.8-7.0) K/uL Lymph # (Auto) 1.7 (1.0-4.3) K/uL [place] # (Auto) 0.5 (0.0-0.8) K/uL Eos # (Auto) 0.1 (0.0-0.7) K/uL Baso # (Auto) 0.0 (0.0-0.2) K/uL APTT 72 H D (21-34) SECONDS Sodium 137 (132-148) mmol/L Potassium 4.4 (3.6-5.2) mmol/L Chloride 109 H (98-107) mmol/L Carbon Dioxide 21 L (22-30) mmol/L Anion Gap 11 (10-20) BUN 24 H (9-20) mg/dL Creatinine 1.1 (0.8-1.5) mg/dL Est GFR ( Amer) > 60 Est GFR (Non-Af Amer) > 60 POC Glucose (mg/dL) (65-110) mg/dL Random Glucose 101 D (75-110) mg/dL Calcium 8.6 (8.6-10.4) mg/dl Phosphorus 4.1 (2.5-4.5) mg/dL Magnesium 1.8 (1.6-2.3) mg/dL Total Bilirubin 0.5 (0.2-1.3) mg/dL AST 29 (17-59) U/L ALT 10 L D (21-72) U/L Alkaline Phosphatase 47 (38-126) U/L Total Creatine Kinase 43 L (55-170) U/L CK-MB (Mass) 0.25 (0.0-3.38) ng/mL Troponin I < 0.0120 (0.00-0.120) ng/mL Total Protein 6.8 (6.3-8.3) g/dL Albumin 3.9 (3.5-5.0) g/dL Globulin 2.9 (2.2-3.9) gm/dL Albumin/Globulin Ratio 1.4 (1.0-2.1) 01/25/19 01/25/19 01/25/19 Range/Units 22:50 21:16 17:34 WBC (4.8-10.8) K/uL RBC (4.40-5.90) Mil/uL Hgb (12.0-18.0) g/dL Hct (35.0-51.0) % MCV (80.0-94.0) fL MCH (27.0-31.0) pg MCHC (33.0-37.0) g/dL RDW (11.5-14.5) % Plt Count (130-400) K/uL MPV (7.2-11.7) fL Neut % (Auto) (50.0-75.0) % Lymph % (Auto) (20.0-40.0) % [place] % (Auto) (0.0-10.0) % Eos % (Auto) (0.0-4.0) % Baso % (Auto) (0.0-2.0) % Neut # (Auto) (1.8-7.0) K/uL Lymph # (Auto) (1.0-4.3) K/uL [place] # (Auto) (0.0-0.8) K/uL Eos # (Auto) (0.0-0.7) K/uL Baso # (Auto) (0.0-0.2) K/uL APTT (21-34) SECONDS Sodium (132-148) mmol/L Potassium (3.6-5.2) mmol/L Chloride (98-107) mmol/L Carbon Dioxide (22-30) mmol/L Anion Gap (10-20) BUN (9-20) mg/dL Creatinine (0.8-1.5) mg/dL Est GFR ( Amer) Est GFR (Non-Af Amer) POC Glucose (mg/dL) 204 H (65-110) mg/dL Random Glucose (75-110) mg/dL Calcium (8.6-10.4) mg/dl Phosphorus (2.5-4.5) mg/dL Magnesium (1.6-2.3) mg/dL Total Bilirubin (0.2-1.3) mg/dL AST (17-59) U/L ALT (21-72) U/L Alkaline Phosphatase (38-126) U/L Total Creatine Kinase 41 L (55-170) U/L CK-MB (Mass) 0.28 (0.0-3.38) ng/mL Troponin I < 0.0120 < 0.0120 (0.00-0.120) ng/mL Total Protein (6.3-8.3) g/dL Albumin (3.5-5.0) g/dL Globulin (2.2-3.9) gm/dL Albumin/Globulin Ratio (1.0-2.1) 01/25/19 01/25/19 Range/Units 16:53 11:31 WBC (4.8-10.8) K/uL RBC (4.40-5.90) Mil/uL Hgb (12.0-18.0) g/dL Hct (35.0-51.0) % MCV (80.0-94.0) fL MCH (27.0-31.0) pg MCHC (33.0-37.0) g/dL RDW (11.5-14.5) % Plt Count (130-400) K/uL MPV (7.2-11.7) fL Neut % (Auto) (50.0-75.0) % Lymph % (Auto) (20.0-40.0) % [place] % (Auto) (0.0-10.0) % Eos % (Auto) (0.0-4.0) % Baso % (Auto) (0.0-2.0) % Neut # (Auto) (1.8-7.0) K/uL Lymph # (Auto) (1.0-4.3) K/uL [place] # (Auto) (0.0-0.8) K/uL Eos # (Auto) (0.0-0.7) K/uL Baso # (Auto) (0.0-0.2) K/uL APTT (21-34) SECONDS Sodium (132-148) mmol/L Potassium (3.6-5.2) mmol/L Chloride (98-107) mmol/L Carbon Dioxide (22-30) mmol/L Anion Gap (10-20) BUN (9-20) mg/dL Creatinine (0.8-1.5) mg/dL Est GFR ( Amer) Est GFR (Non-Af Amer) POC Glucose (mg/dL) 125 H 150 H (65-110) mg/dL Random Glucose (75-110) mg/dL Calcium (8.6-10.4) mg/dl Phosphorus (2.5-4.5) mg/dL Magnesium (1.6-2.3) mg/dL Total Bilirubin (0.2-1.3) mg/dL AST (17-59) U/L ALT (21-72) U/L Alkaline Phosphatase (38-126) U/L Total Creatine Kinase (55-170) U/L CK-MB (Mass) (0.0-3.38) ng/mL Troponin I (0.00-0.120) ng/mL Total Protein (6.3-8.3) g/dL Albumin (3.5-5.0) g/dL Globulin (2.2-3.9) gm/dL Albumin/Globulin Ratio (1.0-2.1) Laboratory Results - last 24 hr 01/25/19 01/25/19 01/25/19 11:31 16:53 17:34 WBC RBC Hgb Hct MCV MCH MCHC RDW Plt Count MPV Neut % (Auto) Lymph % (Auto) [place] % (Auto) Eos % (Auto) Baso % (Auto) Neut # (Auto) Lymph # (Auto) [place] # (Auto) Eos # (Auto) Baso # (Auto) APTT Sodium Potassium Chloride Carbon Dioxide Anion Gap BUN Creatinine Est GFR ( Amer) Est GFR (Non-Af Amer) POC Glucose (mg/dL) 150 H 125 H Random Glucose Calcium Phosphorus Magnesium Total Bilirubin AST ALT Alkaline Phosphatase Total Creatine Kinase CK-MB (Mass) Troponin I < 0.0120 Total Protein Albumin Globulin Albumin/Globulin Ratio 01/25/19 01/25/19 01/26/19 21:16 22:50 01:37 WBC RBC Hgb Hct MCV MCH MCHC RDW Plt Count MPV Neut % (Auto) Lymph % (Auto) [place] % (Auto) Eos % (Auto) Baso % (Auto) Neut # (Auto) Lymph # (Auto) [place] # (Auto) Eos # (Auto) Baso # (Auto) APTT 72 H D Sodium Potassium Chloride Carbon Dioxide Anion Gap BUN Creatinine Est GFR ( Amer) Est GFR (Non-Af Amer) POC Glucose (mg/dL) 204 H Random Glucose Calcium Phosphorus Magnesium Total Bilirubin AST ALT Alkaline Phosphatase Total Creatine Kinase 41 L CK-MB (Mass) 0.28 Troponin I < 0.0120 Total Protein Albumin Globulin Albumin/Globulin Ratio 01/26/19 01/26/19 06:05 06:05 WBC 4.3 L RBC 4.98 Hgb 11.5 L Hct 36.9 MCV 74.2 L MCH 23.1 L MCHC 31.2 L RDW 14.3 Plt Count 227 MPV 8.7 Neut % (Auto) 43.9 L Lymph % (Auto) 39.5 [place] % (Auto) 12.5 H Eos % (Auto) 3.4 Baso % (Auto) 0.7 Neut # (Auto) 1.9 Lymph # (Auto) 1.7 [place] # (Auto) 0.5 Eos # (Auto) 0.1 Baso # (Auto) 0.0 APTT Sodium 137 Potassium 4.4 Chloride 109 H Carbon Dioxide 21 L Anion Gap 11 BUN 24 H Creatinine 1.1 Est GFR ( Amer) > 60 Est GFR (Non-Af Amer) > 60 POC Glucose (mg/dL) Random Glucose 101 D Calcium 8.6 Phosphorus 4.1 Magnesium 1.8 Total Bilirubin 0.5 AST 29 ALT 10 L D Alkaline Phosphatase 47 Total Creatine Kinase 43 L CK-MB (Mass) 0.25 Troponin I < 0.0120 Total Protein 6.8 Albumin 3.9 Globulin 2.9 Albumin/Globulin Ratio 1.4 EKG/Cardiology Studies: Cardiology / EKG Studies 01/26/19 04:00 EKG [ELECTROCARDIOGRAM] Routine Comment: Mode Of Transportation: Reason For Exam: chest pain Precautions: Standard Fingerstick Blood Sugar Results: 204 Review of Systems - Constitutional Constitutional: absent: Fever, Chills, Sweats, Weakness - EENT Eyes: UNREMARKABLE. absent: Diplopia, Itchy Eyes Ears: UNREMARKABLE Nose/Mouth/Throat: UNREMARKABLE. absent: Nasal Congestion, Nose Pain - Cardiovascular Cardiovascular: UNREMARKABLE. absent: Chest Pain, Chest Pain at Rest, Dyspnea - Respiratory Respiratory: UNREMARKABLE. absent: Dyspnea, Dyspnea on Exertion - Gastrointestinal Gastrointestinal: UNREMARKABLE. absent: Abdominal Pain, Belching, Change in Bowel Habits - Genitourinary Genitourinary: UNREMARKABLE. absent: Change in Urinary Stream, Difficulty Urinating - Musculoskeletal Musculoskeletal: UNREMARKABLE. absent: Arthralgias, Joint Swelling - Integumentary Integumentary: UNREMARKABLE. absent: Acne, Alopecia - Neurological Neurological: UNREMARKABLE. absent: Abnormal Gait, Abnormal Hearing - Psychiatric Psychiatric: UNREMARKABLE. absent: Depression - Endocrine Endocrine: UNREMARKABLE - Hematologic/Lymphatic Hematologic: UNREMARKABLE Critical Care Progress Note - Extremities/Vascular Does the Patient have a Central Venous Catheter?: No Does the Patient need a Central Venous Catheter?: No Does the Patient have a Collins Catheter?: No Does the Patient need a Collins Catheter?: No - Prophylaxis GI Prophylaxis GI: Pepsid - Prophylaxis DVT Prophylaxis DVT: Not Indicated - Nutrition Nutrition: Nutrition Category Date Time Status NPO Diet [DIET] Diets 01/26/19 Breakfast Active Assessment/Plan - Assessment and Plan (Free Text) Assessment: 63 M w/ PMhx of HTN, DM, HLD admitted for chest pain, cardiac cath on 01/25 cancelled due to equipment failure, here in ICU for unstable angina, heparin drip w/ plavix, aspirin started; currently negative troponins, heparin held in AM [place] [facility] [place] Plan: Neuro - A&O x 3 Cardio - unstable angina, improving chest pain - troponins negative X3 - hold heparin drip, [place] [facility] [place] - c/w plavix 75 mg daily & aspirin 81 mg daily - c/w coreg 6.25 mg BID, amlodipine 5 mg PO daily, losartan 100 mg PO daily - c/w rosuvastatin 20 mg PO HS Pulm - vitals WNL - continue to monitor GI - Heart healthy diet - NPO past MN for cardiac cath 01/26 - voiding freely - continue to monitor Heme - H/H 11.5/36.9 - continue to monitor Endo - hx of diabetes - hold oral meds - ISS low - accuchecks - hypoglycemic protocol Renal - Bun/Cr WNL - continue to monitor PPx - DVT: SCDs - GI: Pepcid 20mg daily <Ernesto Gregory S - Last Filed: 01/26/19 17:39> CCU Subjective - Physician Review Critical Care Time Spent (in minutes): 35 CCU Objective - Vital Signs / Intake & Output Intake and Output (Last 8hrs): Intake & Output 01/26/19 01/26/19 01/26/19 06:59 14:59 22:59 Intake Total 296.3 335.7 Output Total 450 300 Balance -153.7 35.7 Weight 197 lb 1.492 oz Intake: Intake, IV Amount 96.3 10.7 Right Wrist 96.3 10.7 Oral 200 325 Output: Urine 450 300 Urine, Voided 450 300 Other: # Voids Urine, Voided 0 1 # Bowel Movements 0 0 - Medications Active Medications: Active Medications Generic Name Dose Route Start Last Admin Trade Name Freq PRN Reason Stop Dose Admin Acetaminophen 650 mg 01/26/19 12:38 Tylenol 325mg Tab PO PRN PRN Pain, moderate (4-7) Amlodipine Besylate 5 mg 01/25/19 10:00 01/26/19 11:08 Norvasc PO 5 mg DAILY ALBINO Administration Aspirin 81 mg 01/26/19 10:20 01/26/19 11:08 Ecotrin PO 81 mg DAILY ALBINO Administration Carvedilol 6.25 mg 01/24/19 18:00 01/26/19 11:08 Coreg PO 6.25 mg BID ALBINO Administration Clopidogrel Bisulfate 75 mg 01/26/19 10:20 01/26/19 11:08 Plavix PO 75 mg DAILY ALBINO Administration Dextrose 0 ml 01/25/19 18:03 Dextrose 50% Inj IV STAT PRN Hypoglycemia Protocol Protocol Dextrose 0 gm 01/25/19 18:03 Glutose 15 PO ONCE PRN Hypoglycemia Protocol Protocol Famotidine 20 mg 01/26/19 10:00 01/26/19 11:08 Pepcid PO 20 mg DAILY ALBINO Administration Glucagon 0 mg 01/25/19 18:03 Glucagen Diagnostic Kit IM STAT PRN Hypoglycemia Protocol Protocol Dextrose 1,000 mls @ 0 mls/hr 01/25/19 18:03 Dextrose 5% In Water 1000 Ml IV .Q0M PRN Hypoglycemia Protocol Protocol Per Protocol Insulin Human Regular 0 unit 01/24/19 22:00 01/26/19 12:00 Novolin R SC Not Given ACHS ALBINO Protocol Losartan Potassium 100 mg 01/25/19 10:00 01/26/19 11:08 Cozaar PO 100 mg DAILY ALBINO Administration Rosuvastatin Calcium 20 mg 01/24/19 22:00 01/25/19 22:22 Crestor PO 20 mg HS ALBINO Administration Sitagliptin Phosphate 50 mg 01/25/19 10:00 01/25/19 09:25 Januvia PO Not Given DAILY ALBINO - Patient Studies Lab Studies: Lab Studies 01/26/19 01/26/19 01/26/19 Range/Units 11:40 10:34 07:48 WBC (4.8-10.8) K/uL RBC (4.40-5.90) Mil/uL Hgb (12.0-18.0) g/dL Hct (35.0-51.0) % MCV (80.0-94.0) fL MCH (27.0-31.0) pg MCHC (33.0-37.0) g/dL RDW (11.5-14.5) % Plt Count (130-400) K/uL MPV (7.2-11.7) fL Neut % (Auto) (50.0-75.0) % Lymph % (Auto) (20.0-40.0) % [place] % (Auto) (0.0-10.0) % Eos % (Auto) (0.0-4.0) % Baso % (Auto) (0.0-2.0) % Neut # (Auto) (1.8-7.0) K/uL Lymph # (Auto) (1.0-4.3) K/uL [place] # (Auto) (0.0-0.8) K/uL Eos # (Auto) (0.0-0.7) K/uL Baso # (Auto) (0.0-0.2) K/uL APTT 23 D (21-34) SECONDS Sodium (132-148) mmol/L Potassium (3.6-5.2) mmol/L Chloride (98-107) mmol/L Carbon Dioxide (22-30) mmol/L Anion Gap (10-20) BUN (9-20) mg/dL Creatinine (0.8-1.5) mg/dL Est GFR ( Amer) Est GFR (Non-Af Amer) POC Glucose (mg/dL) 158 H 121 H (65-110) mg/dL Random Glucose (75-110) mg/dL Calcium (8.6-10.4) mg/dl Phosphorus (2.5-4.5) mg/dL Magnesium (1.6-2.3) mg/dL Total Bilirubin (0.2-1.3) mg/dL AST (17-59) U/L ALT (21-72) U/L Alkaline Phosphatase (38-126) U/L Total Creatine Kinase (55-170) U/L CK-MB (Mass) (0.0-3.38) ng/mL Troponin I (0.00-0.120) ng/mL Total Protein (6.3-8.3) g/dL Albumin (3.5-5.0) g/dL Globulin (2.2-3.9) gm/dL Albumin/Globulin Ratio (1.0-2.1) 01/26/19 01/26/19 01/26/19 Range/Units 06:05 06:05 01:37 WBC 4.3 L (4.8-10.8) K/uL RBC 4.98 (4.40-5.90) Mil/uL Hgb 11.5 L (12.0-18.0) g/dL Hct 36.9 (35.0-51.0) % MCV 74.2 L (80.0-94.0) fL MCH 23.1 L (27.0-31.0) pg MCHC 31.2 L (33.0-37.0) g/dL RDW 14.3 (11.5-14.5) % Plt Count 227 (130-400) K/uL MPV 8.7 (7.2-11.7) fL Neut % (Auto) 43.9 L (50.0-75.0) % Lymph % (Auto) 39.5 (20.0-40.0) % [place] % (Auto) 12.5 H (0.0-10.0) % Eos % (Auto) 3.4 (0.0-4.0) % Baso % (Auto) 0.7 (0.0-2.0) % Neut # (Auto) 1.9 (1.8-7.0) K/uL Lymph # (Auto) 1.7 (1.0-4.3) K/uL [place] # (Auto) 0.5 (0.0-0.8) K/uL Eos # (Auto) 0.1 (0.0-0.7) K/uL Baso # (Auto) 0.0 (0.0-0.2) K/uL APTT 72 H D (21-34) SECONDS Sodium 137 (132-148) mmol/L Potassium 4.4 (3.6-5.2) mmol/L Chloride 109 H (98-107) mmol/L Carbon Dioxide 21 L (22-30) mmol/L Anion Gap 11 (10-20) BUN 24 H (9-20) mg/dL Creatinine 1.1 (0.8-1.5) mg/dL Est GFR ( Amer) > 60 Est GFR (Non-Af Amer) > 60 POC Glucose (mg/dL) (65-110) mg/dL Random Glucose 101 D (75-110) mg/dL Calcium 8.6 (8.6-10.4) mg/dl Phosphorus 4.1 (2.5-4.5) mg/dL Magnesium 1.8 (1.6-2.3) mg/dL Total Bilirubin 0.5 (0.2-1.3) mg/dL AST 29 (17-59) U/L ALT 10 L D (21-72) U/L Alkaline Phosphatase 47 (38-126) U/L Total Creatine Kinase 43 L (55-170) U/L CK-MB (Mass) 0.25 (0.0-3.38) ng/mL Troponin I < 0.0120 (0.00-0.120) ng/mL Total Protein 6.8 (6.3-8.3) g/dL Albumin 3.9 (3.5-5.0) g/dL Globulin 2.9 (2.2-3.9) gm/dL Albumin/Globulin Ratio 1.4 (1.0-2.1) 01/25/19 01/25/19 01/25/19 Range/Units 22:50 21:16 17:34 WBC (4.8-10.8) K/uL RBC (4.40-5.90) Mil/uL Hgb (12.0-18.0) g/dL Hct (35.0-51.0) % MCV (80.0-94.0) fL MCH (27.0-31.0) pg MCHC (33.0-37.0) g/dL RDW (11.5-14.5) % Plt Count (130-400) K/uL MPV (7.2-11.7) fL Neut % (Auto) (50.0-75.0) % Lymph % (Auto) (20.0-40.0) % [place] % (Auto) (0.0-10.0) % Eos % (Auto) (0.0-4.0) % Baso % (Auto) (0.0-2.0) % Neut # (Auto) (1.8-7.0) K/uL Lymph # (Auto) (1.0-4.3) K/uL [place] # (Auto) (0.0-0.8) K/uL Eos # (Auto) (0.0-0.7) K/uL Baso # (Auto) (0.0-0.2) K/uL APTT (21-34) SECONDS Sodium (132-148) mmol/L Potassium (3.6-5.2) mmol/L Chloride (98-107) mmol/L Carbon Dioxide (22-30) mmol/L Anion Gap (10-20) BUN (9-20) mg/dL Creatinine (0.8-1.5) mg/dL Est GFR ( Amer) Est GFR (Non-Af Amer) POC Glucose (mg/dL) 204 H (65-110) mg/dL Random Glucose (75-110) mg/dL Calcium (8.6-10.4) mg/dl Phosphorus (2.5-4.5) mg/dL Magnesium (1.6-2.3) mg/dL Total Bilirubin (0.2-1.3) mg/dL AST (17-59) U/L ALT (21-72) U/L Alkaline Phosphatase (38-126) U/L Total Creatine Kinase 41 L (55-170) U/L CK-MB (Mass) 0.28 (0.0-3.38) ng/mL Troponin I < 0.0120 < 0.0120 (0.00-0.120) ng/mL Total Protein (6.3-8.3) g/dL Albumin (3.5-5.0) g/dL Globulin (2.2-3.9) gm/dL Albumin/Globulin Ratio (1.0-2.1) Laboratory Results - last 24 hr 01/25/19 01/25/19 01/25/19 17:34 21:16 22:50 WBC RBC Hgb Hct MCV MCH MCHC RDW Plt Count MPV Neut % (Auto) Lymph % (Auto) [place] % (Auto) Eos % (Auto) Baso % (Auto) Neut # (Auto) Lymph # (Auto) [place] # (Auto) Eos # (Auto) Baso # (Auto) APTT Sodium Potassium Chloride Carbon Dioxide Anion Gap BUN Creatinine Est GFR ( Amer) Est GFR (Non-Af Amer) POC Glucose (mg/dL) 204 H Random Glucose Calcium Phosphorus Magnesium Total Bilirubin AST ALT Alkaline Phosphatase Total Creatine Kinase 41 L CK-MB (Mass) 0.28 Troponin I < 0.0120 < 0.0120 Total Protein Albumin Globulin Albumin/Globulin Ratio 01/26/19 01/26/19 01/26/19 01:37 06:05 06:05 WBC 4.3 L RBC 4.98 Hgb 11.5 L Hct 36.9 MCV 74.2 L MCH 23.1 L MCHC 31.2 L RDW 14.3 Plt Count 227 MPV 8.7 Neut % (Auto) 43.9 L Lymph % (Auto) 39.5 [place] % (Auto) 12.5 H Eos % (Auto) 3.4 Baso % (Auto) 0.7 Neut # (Auto) 1.9 Lymph # (Auto) 1.7 [place] # (Auto) 0.5 Eos # (Auto) 0.1 Baso # (Auto) 0.0 APTT 72 H D Sodium 137 Potassium 4.4 Chloride 109 H Carbon Dioxide 21 L Anion Gap 11 BUN 24 H Creatinine 1.1 Est GFR ( Amer) > 60 Est GFR (Non-Af Amer) > 60 POC Glucose (mg/dL) Random Glucose 101 D Calcium 8.6 Phosphorus 4.1 Magnesium 1.8 Total Bilirubin 0.5 AST 29 ALT 10 L D Alkaline Phosphatase 47 Total Creatine Kinase 43 L CK-MB (Mass) 0.25 Troponin I < 0.0120 Total Protein 6.8 Albumin 3.9 Globulin 2.9 Albumin/Globulin Ratio 1.4 01/26/19 01/26/19 01/26/19 07:48 10:34 11:40 WBC RBC Hgb Hct MCV MCH MCHC RDW Plt Count MPV Neut % (Auto) Lymph % (Auto) [place] % (Auto) Eos % (Auto) Baso % (Auto) Neut # (Auto) Lymph # (Auto) [place] # (Auto) Eos # (Auto) Baso # (Auto) APTT 23 D Sodium Potassium Chloride Carbon Dioxide Anion Gap BUN Creatinine Est GFR ( Amer) Est GFR (Non-Af Amer) POC Glucose (mg/dL) 121 H 158 H Random Glucose Calcium Phosphorus Magnesium Total Bilirubin AST ALT Alkaline Phosphatase Total Creatine Kinase CK-MB (Mass) Troponin I Total Protein Albumin Globulin Albumin/Globulin Ratio EKG/Cardiology Studies: Cardiology / EKG Studies 01/26/19 04:00 EKG [ELECTROCARDIOGRAM] Routine Comment: Mode Of Transportation: Reason For Exam: chest pain Precautions: Standard Critical Care Progress Note - Nutrition Nutrition: Nutrition Category Date Time Status Heart Healthy Diet [DIET] Diets 01/26/19 Lunch Active Attending/Attestation - Attestation I have personally seen and examined this patient.: Yes I have fully participated in the care of the patient.: Yes I have reviewed all pertinent clinical information: Yes Notes (Text): 01/26/19 Patient seen and examined in the intensive care unit. No chest pain overnight For transfer to [facility] for cardiac cath Continue present treatment for now
[2019-01-26] MEDS: (Novolin R) Insulin Human Regular 100 units/ml vial SC SCH ×4 (07:52→21:40)
[2019-01-26] MEDS ORDERED: Influenza Vaccine 60 mcg/0.5 mL SYR (4YR UP) IM ONE (10:00)
[2019-01-26] MEDS ORDERED: Pneumococcal 23-Valent Vaccine IM ONE (10:00)
[2019-01-27] MEDS: Sodium Chloride 0.9% 1,000 ML IV SCH (02:23)
[2019-01-27 05:42] LABS: BASO % 0.3 % (0.0-2.0); EOS # 0.1 K/uL (0.0-0.7); EOS % 2.1 % (0.0-4.0); HEMOGLOBIN 11.9 g/dL (12.0-18.0); LYMPH # 1.6 K/uL (1.0-4.3); LYMPH % 29.7 % (20.0-40.0); MEAN CELL VOLUME 73.4 fL (80.0-94.0); MEAN CORPUSCULAR HEMOGLOBIN 22.8 pg (27.0-31.0); MEAN CORPUSCULAR HGB CONC 31.1 g/dL (33.0-37.0); MEAN PLATELET VOLUME 8.6 fL (7.2-11.7); MONO # 0.7 K/uL (0.0-0.8); MONO % 13.3 % (0.0-10.0); NEUT # 2.9 K/uL (1.8-7.0); NEUT % 54.6 % (50.0-75.0); NRBC % 0.1 % (0.0-2.0); RBC 5.2 Mil/uL (4.40-5.90); RED CELL DISTRIBUTION WIDTH 14.2 % (11.5-14.5); WHITE BLOOD COUNT 5.3 K/uL (4.8-10.8)
[2019-01-27 06:10] LABS: ALB/GLOB RATIO 1.5 (1.0-2.1); ALBUMIN 4.2 g/dL (3.5-5.0); ALT/SGPT 18 U/L (21-72); AST/SGOT 23 U/L (17-59); BLOOD UREA NITROGEN 21 mg/dL (9-20); CALCIUM 9.4 mg/dl (8.6-10.4); GFR NON-AFRICAN AMERICAN > 60
[2019-01-27 06:14] LABS: CK-MB 0.25 ng/mL (0.0-3.38)
--- NOTE | 2019-01-27 06:19 | DS ---
TRANSFER SUMMARY The patient is being transferred to [facility] for cardiac cath, possible intervention. HISTORY OF PRESENT ILLNESS: This is a 63-year-old gentleman with history of diabetes, hypertension, severe back problems, walks around with a cane, who was brought in for chest pain. The pain was atypical. The patient had a negative Myoview stress test done, Lexiscan in the past. She came back again with a chest pain and cardiac cath was recommended for diagnostic test. Machine had broken down at [facility]. Subsequently, the patient was supposed to be discharged but had a severe crushing chest pain again. EKG and enzymes were negative. The patient was recommended to have a cath before discharge. The patient will be transferred to [facility]. The patient was also seen by Dr. Turner, who is going to do the angiogram and follow up him for a month while I am away on vacation. FINAL DIAGNOSES: Chest pain, possible anginal; history of diabetes, hypertension, high cholesterol and back problems. Care of plan was explained to the patient and his . Manuel Kasper MD
[2019-01-27] MEDS: (Novolin R) Insulin Human Regular 100 units/ml vial SC SCH (07:30)
[2019-01-27 10:10] VITALS: BP 136/70
--- NOTE | 2019-01-27 12:22 | CP.CCUPN ---
<aJya Kasper M - Last Filed: 01/27/19 12:17> CCU Subjective - Physician Review Subjective (Free Text): Critical care progress note for Dr. Criselda Roth. Patient seen and examined at bedside. No overnight events. Pt is post cardiac cath 01/26 @ [facility] [place] w/ clean vessels. Patient states he feels fine, denies headaches, vision changes, chest pain, SOB, cough, abdominal pain, nausea, vomiting, fevers, chills. CCU Objective - Vital Signs / Intake & Output Vital Signs (Last 4 hours): Vital Signs Pulse Resp BP 01/27/19 10:00 85 19 01/27/19 09:05 95 H 22 136/70 01/27/19 09:00 91 H 17 Intake and Output (Last 8hrs): Intake & Output 01/26/19 01/27/19 01/27/19 22:59 06:59 14:59 Intake Total 100 500 800 Output Total 768 710 1195 Balance -250 -300 -400 Weight 196 lb 5 oz Intake: Oral 100 500 800 Output: Urine 617 151 6748 Urine, Voided 103 681 9169 Stool 0 Other: # Voids Urine, Voided 1 0 # Bowel Movements 0 - Physical Exam Head: Positive for: Atraumatic, Normocephalic Pupils: Positive for: PERRL Extroacular Muscles: Positive for: EOMI Conjunctiva: Positive for: Normal Mouth: Positive for: Moist Mucous Membranes Neck: Positive for: Normal Range of Motion Respiratory/Chest: Positive for: Clear to Auscultation, Decreased Breath Sounds. Negative for: Respiratory Distress, Accessory Muscle Use Cardiovascular: Positive for: Normal S1, S2. Negative for: Murmurs Abdomen: Positive for: Normal Bowel Sounds. Negative for: Tenderness, Distention, Guarding Upper Extremity: Positive for: Normal Inspection. Negative for: Edema Lower Extremity: Positive for: Normal Inspection. Negative for: Edema Neurological: Positive for: GCS=15 Skin: Positive for: Warm, Dry, Rashes Psychiatric: Positive for: Alert, Oriented x 3 - Medications Active Medications: Active Medications Generic Name Dose Route Start Last Admin Trade Name Freq PRN Reason Stop Dose Admin Acetaminophen 650 mg 01/26/19 12:38 Tylenol 325mg Tab PO PRN PRN Pain, moderate (4-7) Amlodipine Besylate 5 mg 01/25/19 10:00 01/27/19 09:09 Norvasc PO 5 mg DAILY ALBINO Administration Aspirin 81 mg 01/26/19 10:20 01/27/19 09:08 Ecotrin PO 81 mg DAILY ALBINO Administration Carvedilol 12.5 mg 01/27/19 18:00 Coreg PO BID ALBINO Clopidogrel Bisulfate 75 mg 01/26/19 10:20 01/27/19 09:07 Plavix PO 75 mg DAILY ALBINO Administration Dextrose 0 ml 01/25/19 18:03 Dextrose 50% Inj IV STAT PRN Hypoglycemia Protocol Protocol Dextrose 0 gm 01/25/19 18:03 Glutose 15 PO ONCE PRN Hypoglycemia Protocol Protocol Famotidine 20 mg 01/26/19 10:00 01/27/19 09:08 Pepcid PO 20 mg DAILY ALBINO Administration Glucagon 0 mg 01/25/19 18:03 Glucagen Diagnostic Kit IM STAT PRN Hypoglycemia Protocol Protocol Dextrose 1,000 mls @ 0 mls/hr 01/25/19 18:03 Dextrose 5% In Water 1000 Ml IV .Q0M PRN Hypoglycemia Protocol Protocol Per Protocol Insulin Human Regular 0 unit 01/24/19 22:00 01/27/19 07:30 Novolin R SC Not Given ACHS ALBINO Protocol Losartan Potassium 100 mg 01/25/19 10:00 01/27/19 09:09 Cozaar PO 100 mg DAILY ALBINO Administration Rosuvastatin Calcium 20 mg 01/24/19 22:00 01/26/19 21:13 Crestor PO 20 mg HS ALBINO Administration Sitagliptin Phosphate 50 mg 01/25/19 10:00 01/25/19 09:25 Januvia PO Not Given DAILY ALBINO - Patient Studies Lab Studies: Microbiology Studies 01/25/19 22:50 MRSA Culture (Admit) - Final Nose MRSA NOT DETECTED Lab Studies 01/27/19 01/27/19 01/27/19 Range/Units 11:22 07:18 05:34 WBC (4.8-10.8) K/uL RBC (4.40-5.90) Mil/uL Hgb (12.0-18.0) g/dL Hct (35.0-51.0) % MCV (80.0-94.0) fL MCH (27.0-31.0) pg MCHC (33.0-37.0) g/dL RDW (11.5-14.5) % Plt Count (130-400) K/uL MPV (7.2-11.7) fL Neut % (Auto) (50.0-75.0) % Lymph % (Auto) (20.0-40.0) % [place] % (Auto) (0.0-10.0) % Eos % (Auto) (0.0-4.0) % Baso % (Auto) (0.0-2.0) % Neut # (Auto) (1.8-7.0) K/uL Lymph # (Auto) (1.0-4.3) K/uL [place] # (Auto) (0.0-0.8) K/uL Eos # (Auto) (0.0-0.7) K/uL Baso # (Auto) (0.0-0.2) K/uL Sodium 140 (132-148) mmol/L Potassium 4.1 (3.6-5.2) mmol/L Chloride 106 (98-107) mmol/L Carbon Dioxide 26 (22-30) mmol/L Anion Gap 13 (10-20) BUN 21 H (9-20) mg/dL Creatinine 1.2 (0.8-1.5) mg/dL Est GFR ( Amer) > 60 Est GFR (Non-Af Amer) > 60 POC Glucose (mg/dL) 245 H 115 H (65-110) mg/dL Random Glucose 110 (75-110) mg/dL Calcium 9.4 (8.6-10.4) mg/dl Phosphorus 4.2 (2.5-4.5) mg/dL Magnesium 1.9 (1.6-2.3) mg/dL Total Bilirubin 0.4 (0.2-1.3) mg/dL AST 23 (17-59) U/L ALT 18 L D (21-72) U/L Alkaline Phosphatase 55 (38-126) U/L Total Creatine Kinase 33 L (55-170) U/L CK-MB (Mass) 0.25 (0.0-3.38) ng/mL Troponin I 0.0170 (0.00-0.120) ng/mL Total Protein 7.1 (6.3-8.3) g/dL Albumin 4.2 (3.5-5.0) g/dL Globulin 2.9 (2.2-3.9) gm/dL Albumin/Globulin Ratio 1.5 (1.0-2.1) 01/27/19 01/26/19 Range/Units 05:33 21:20 WBC 5.3 (4.8-10.8) K/uL RBC 5.20 (4.40-5.90) Mil/uL Hgb 11.9 L (12.0-18.0) g/dL Hct 38.2 (35.0-51.0) % MCV 73.4 L (80.0-94.0) fL MCH 22.8 L (27.0-31.0) pg MCHC 31.1 L (33.0-37.0) g/dL RDW 14.2 (11.5-14.5) % Plt Count 261 (130-400) K/uL MPV 8.6 (7.2-11.7) fL Neut % (Auto) 54.6 (50.0-75.0) % Lymph % (Auto) 29.7 (20.0-40.0) % [place] % (Auto) 13.3 H (0.0-10.0) % Eos % (Auto) 2.1 (0.0-4.0) % Baso % (Auto) 0.3 (0.0-2.0) % Neut # (Auto) 2.9 (1.8-7.0) K/uL Lymph # (Auto) 1.6 (1.0-4.3) K/uL [place] # (Auto) 0.7 (0.0-0.8) K/uL Eos # (Auto) 0.1 (0.0-0.7) K/uL Baso # (Auto) 0.0 (0.0-0.2) K/uL Sodium (132-148) mmol/L Potassium (3.6-5.2) mmol/L Chloride (98-107) mmol/L Carbon Dioxide (22-30) mmol/L Anion Gap (10-20) BUN (9-20) mg/dL Creatinine (0.8-1.5) mg/dL Est GFR ( Amer) Est GFR (Non-Af Amer) POC Glucose (mg/dL) 147 H (65-110) mg/dL Random Glucose (75-110) mg/dL Calcium (8.6-10.4) mg/dl Phosphorus (2.5-4.5) mg/dL Magnesium (1.6-2.3) mg/dL Total Bilirubin (0.2-1.3) mg/dL AST (17-59) U/L ALT (21-72) U/L Alkaline Phosphatase (38-126) U/L Total Creatine Kinase (55-170) U/L CK-MB (Mass) (0.0-3.38) ng/mL Troponin I (0.00-0.120) ng/mL Total Protein (6.3-8.3) g/dL Albumin (3.5-5.0) g/dL Globulin (2.2-3.9) gm/dL Albumin/Globulin Ratio (1.0-2.1) Laboratory Results - last 24 hr 01/26/19 01/27/19 01/27/19 21:20 05:33 05:34 WBC 5.3 RBC 5.20 Hgb 11.9 L Hct 38.2 MCV 73.4 L MCH 22.8 L MCHC 31.1 L RDW 14.2 Plt Count 261 MPV 8.6 Neut % (Auto) 54.6 Lymph % (Auto) 29.7 [place] % (Auto) 13.3 H Eos % (Auto) 2.1 Baso % (Auto) 0.3 Neut # (Auto) 2.9 Lymph # (Auto) 1.6 [place] # (Auto) 0.7 Eos # (Auto) 0.1 Baso # (Auto) 0.0 Sodium 140 Potassium 4.1 Chloride 106 Carbon Dioxide 26 Anion Gap 13 BUN 21 H Creatinine 1.2 Est GFR ( Amer) > 60 Est GFR (Non-Af Amer) > 60 POC Glucose (mg/dL) 147 H Random Glucose 110 Calcium 9.4 Phosphorus 4.2 Magnesium 1.9 Total Bilirubin 0.4 AST 23 ALT 18 L D Alkaline Phosphatase 55 Total Creatine Kinase 33 L CK-MB (Mass) 0.25 Troponin I 0.0170 Total Protein 7.1 Albumin 4.2 Globulin 2.9 Albumin/Globulin Ratio 1.5 01/27/19 01/27/19 07:18 11:22 WBC RBC Hgb Hct MCV MCH MCHC RDW Plt Count MPV Neut % (Auto) Lymph % (Auto) [place] % (Auto) Eos % (Auto) Baso % (Auto) Neut # (Auto) Lymph # (Auto) [place] # (Auto) Eos # (Auto) Baso # (Auto) Sodium Potassium Chloride Carbon Dioxide Anion Gap BUN Creatinine Est GFR ( Amer) Est GFR (Non-Af Amer) POC Glucose (mg/dL) 115 H 245 H Random Glucose Calcium Phosphorus Magnesium Total Bilirubin AST ALT Alkaline Phosphatase Total Creatine Kinase CK-MB (Mass) Troponin I Total Protein Albumin Globulin Albumin/Globulin Ratio Fingerstick Blood Sugar Results: 115 Review of Systems - Constitutional Constitutional: absent: Chills, Sweats, Weakness, Malaise - EENT Eyes: UNREMARKABLE. absent: Blurred Vision, Diplopia, Itchy Eyes Ears: UNREMARKABLE Nose/Mouth/Throat: UNREMARKABLE - Cardiovascular Cardiovascular: UNREMARKABLE. absent: Chest Pain, Chest Pain at Rest - Respiratory Respiratory: UNREMARKABLE. absent: Cough, Dyspnea, Dyspnea on Exertion - Gastrointestinal Gastrointestinal: UNREMARKABLE. absent: Bloating, Diarrhea - Genitourinary Genitourinary: UNREMARKABLE. absent: Change in Urinary Stream, Hematuria - Musculoskeletal Musculoskeletal: absent: Joint Swelling, Muscle Weakness, Myalgias - Integumentary Integumentary: UNREMARKABLE. absent: Alopecia, Bleeding Lesions - Neurological Neurological: UNREMARKABLE. absent: Headaches, Syncope - Psychiatric Psychiatric: absent: UNREMARKABLE - Endocrine Endocrine: absent: UNREMARKABLE Critical Care Progress Note - Prophylaxis GI Prophylaxis GI: PPI - Prophylaxis DVT Prophylaxis DVT: Not Indicated - Nutrition Nutrition: Nutrition Category Date Time Status Heart Healthy Diet [DIET] Diets 01/26/19 Lunch Active Assessment/Plan - Assessment and Plan (Free Text) Assessment: 63 M w/ PMhx of HTN, DM, HLD admitted for chest pain, cardiac cath on 01/25 cancelled due to equipment failure, troponins negative X3, clean cardiac cath 01/26 @ [facility] [place], currently asymptomatic. Stable for downgrade. Plan: Neuro - A&O x 3 Cardio - s/p clean cath [facility] [place] on 01/26 - troponins negative X3 - d/c heparin, d/c plavix - c/w aspirin 81 mg daily - c/w amlodipine 5 mg PO daily, losartan 100 mg PO daily - c/w rosuvastatin 20 mg PO HS - increase coreg to 12.5 mg BID, Pulm - vitals WNL - continue to monitor GI - Heart healthy diet - voiding freely - continue to monitor Heme - H/H stable - continue to monitor Endo - hx of diabetes - hold oral meds - ISS low - accuchecks - hypoglycemic protocol Renal - Bun/Cr WNL - continue to monitor PPx - DVT: SCDs - GI: Pepcid 20mg daily <GonzalezPhoenix M - Last Filed: 01/27/19 15:02> CCU Objective - Vital Signs / Intake & Output Vital Signs (Last 4 hours): Vital Signs Temp Pulse Ox 01/27/19 12:00 98.4 F 98 Intake and Output (Last 8hrs): Intake & Output 01/27/19 01/27/19 01/27/19 06:59 14:59 22:59 Intake Total 500 800 Output Total 800 1200 Balance -300 -400 Weight 196 lb 5 oz Intake: Oral 500 800 Output: Urine 800 1200 Urine, Voided 800 1200 Other: # Voids Urine, Voided 0 # Bowel Movements 0 - Patient Studies Lab Studies: Microbiology Studies 01/25/19 22:50 MRSA Culture (Admit) - Final Nose MRSA NOT DETECTED Lab Studies 01/27/19 01/27/19 01/27/19 Range/Units 11:22 07:18 05:34 WBC (4.8-10.8) K/uL RBC (4.40-5.90) Mil/uL Hgb (12.0-18.0) g/dL Hct (35.0-51.0) % MCV (80.0-94.0) fL MCH (27.0-31.0) pg MCHC (33.0-37.0) g/dL RDW (11.5-14.5) % Plt Count (130-400) K/uL MPV (7.2-11.7) fL Neut % (Auto) (50.0-75.0) % Lymph % (Auto) (20.0-40.0) % [place] % (Auto) (0.0-10.0) % Eos % (Auto) (0.0-4.0) % Baso % (Auto) (0.0-2.0) % Neut # (Auto) (1.8-7.0) K/uL Lymph # (Auto) (1.0-4.3) K/uL [place] # (Auto) (0.0-0.8) K/uL Eos # (Auto) (0.0-0.7) K/uL Baso # (Auto) (0.0-0.2) K/uL Sodium 140 (132-148) mmol/L Potassium 4.1 (3.6-5.2) mmol/L Chloride 106 (98-107) mmol/L Carbon Dioxide 26 (22-30) mmol/L Anion Gap 13 (10-20) BUN 21 H (9-20) mg/dL Creatinine 1.2 (0.8-1.5) mg/dL Est GFR ( Amer) > 60 Est GFR (Non-Af Amer) > 60 POC Glucose (mg/dL) 245 H 115 H (65-110) mg/dL Random Glucose 110 (75-110) mg/dL Calcium 9.4 (8.6-10.4) mg/dl Phosphorus 4.2 (2.5-4.5) mg/dL Magnesium 1.9 (1.6-2.3) mg/dL Total Bilirubin 0.4 (0.2-1.3) mg/dL AST 23 (17-59) U/L ALT 18 L D (21-72) U/L Alkaline Phosphatase 55 (38-126) U/L Total Creatine Kinase 33 L (55-170) U/L CK-MB (Mass) 0.25 (0.0-3.38) ng/mL Troponin I 0.0170 (0.00-0.120) ng/mL Total Protein 7.1 (6.3-8.3) g/dL Albumin 4.2 (3.5-5.0) g/dL Globulin 2.9 (2.2-3.9) gm/dL Albumin/Globulin Ratio 1.5 (1.0-2.1) 01/27/19 01/26/19 Range/Units 05:33 21:20 WBC 5.3 (4.8-10.8) K/uL RBC 5.20 (4.40-5.90) Mil/uL Hgb 11.9 L (12.0-18.0) g/dL Hct 38.2 (35.0-51.0) % MCV 73.4 L (80.0-94.0) fL MCH 22.8 L (27.0-31.0) pg MCHC 31.1 L (33.0-37.0) g/dL RDW 14.2 (11.5-14.5) % Plt Count 261 (130-400) K/uL MPV 8.6 (7.2-11.7) fL Neut % (Auto) 54.6 (50.0-75.0) % Lymph % (Auto) 29.7 (20.0-40.0) % [place] % (Auto) 13.3 H (0.0-10.0) % Eos % (Auto) 2.1 (0.0-4.0) % Baso % (Auto) 0.3 (0.0-2.0) % Neut # (Auto) 2.9 (1.8-7.0) K/uL Lymph # (Auto) 1.6 (1.0-4.3) K/uL [place] # (Auto) 0.7 (0.0-0.8) K/uL Eos # (Auto) 0.1 (0.0-0.7) K/uL Baso # (Auto) 0.0 (0.0-0.2) K/uL Sodium (132-148) mmol/L Potassium (3.6-5.2) mmol/L Chloride (98-107) mmol/L Carbon Dioxide (22-30) mmol/L Anion Gap (10-20) BUN (9-20) mg/dL Creatinine (0.8-1.5) mg/dL Est GFR ( Amer) Est GFR (Non-Af Amer) POC Glucose (mg/dL) 147 H (65-110) mg/dL Random Glucose (75-110) mg/dL Calcium (8.6-10.4) mg/dl Phosphorus (2.5-4.5) mg/dL Magnesium (1.6-2.3) mg/dL Total Bilirubin (0.2-1.3) mg/dL AST (17-59) U/L ALT (21-72) U/L Alkaline Phosphatase (38-126) U/L Total Creatine Kinase (55-170) U/L CK-MB (Mass) (0.0-3.38) ng/mL Troponin I (0.00-0.120) ng/mL Total Protein (6.3-8.3) g/dL Albumin (3.5-5.0) g/dL Globulin (2.2-3.9) gm/dL Albumin/Globulin Ratio (1.0-2.1) Laboratory Results - last 24 hr 01/26/19 01/27/19 01/27/19 21:20 05:33 05:34 WBC 5.3 RBC 5.20 Hgb 11.9 L Hct 38.2 MCV 73.4 L MCH 22.8 L MCHC 31.1 L RDW 14.2 Plt Count 261 MPV 8.6 Neut % (Auto) 54.6 Lymph % (Auto) 29.7 [place] % (Auto) 13.3 H Eos % (Auto) 2.1 Baso % (Auto) 0.3 Neut # (Auto) 2.9 Lymph # (Auto) 1.6 [place] # (Auto) 0.7 Eos # (Auto) 0.1 Baso # (Auto) 0.0 Sodium 140 Potassium 4.1 Chloride 106 Carbon Dioxide 26 Anion Gap 13 BUN 21 H Creatinine 1.2 Est GFR ( Amer) > 60 Est GFR (Non-Af Amer) > 60 POC Glucose (mg/dL) 147 H Random Glucose 110 Calcium 9.4 Phosphorus 4.2 Magnesium 1.9 Total Bilirubin 0.4 AST 23 ALT 18 L D Alkaline Phosphatase 55 Total Creatine Kinase 33 L CK-MB (Mass) 0.25 Troponin I 0.0170 Total Protein 7.1 Albumin 4.2 Globulin 2.9 Albumin/Globulin Ratio 1.5 01/27/19 01/27/19 07:18 11:22 WBC RBC Hgb Hct MCV MCH MCHC RDW Plt Count MPV Neut % (Auto) Lymph % (Auto) [place] % (Auto) Eos % (Auto) Baso % (Auto) Neut # (Auto) Lymph # (Auto) [place] # (Auto) Eos # (Auto) Baso # (Auto) Sodium Potassium Chloride Carbon Dioxide Anion Gap BUN Creatinine Est GFR ( Amer) Est GFR (Non-Af Amer) POC Glucose (mg/dL) 115 H 245 H Random Glucose Calcium Phosphorus Magnesium Total Bilirubin AST ALT Alkaline Phosphatase Total Creatine Kinase CK-MB (Mass) Troponin I Total Protein Albumin Globulin Albumin/Globulin Ratio Critical Care Progress Note - Nutrition Nutrition: Nutrition Category Date Time Status Heart Healthy Diet [DIET] Diets 01/26/19 Lunch Active Assessment/Plan - Assessment and Plan (Free Text) Plan: Above patient seen and examined at bedside. Patient remains hemodynamically stable. -tolerating oral medications -above resident note reviewed and verified. - Date & Time Date: 01/27/19 Time: 15:02
[2019-01-27 12:40] VITALS: PULSE 73; RESP 16; TEMP 98.4; O2SAT 98
--- NOTE | 2019-01-28 02:35 | DS ---
HOSPITAL COURSE: A 63-year-old gentleman with history of hypertension, diabetes, severe back problems, walks around with a cane, was brought in with atypical chest pain; [place] was ruled out. The patient underwent cardiac catheterization at [facility] on 01/26/2019 and was found to have no significant coronary artery disease. At this point, he will be discharged to be followed up as an outpatient. He will continue with all his blood pressure medications along with baby aspirin one a day. Care of plan was explained to the patient and his . FINAL DIAGNOSES: 1. Atypical chest pain. 2. Diabetes. 3. Hypertension. 4. Back problems. Manuel Kasper MD
== END 2019-01-27 12:20 | disposition home or self-care (01) | DRG 311 ==
LOC: C.ER 09:22 → C.9E 11:24 → C.6T 16:46 → OBSVTOIN 01-25 17:16 → C.9I 01-25 18:02
PROVIDERS: ADMIT Internal Medicine Cardiovascular Disease; ATTEND Internal Medicine Cardiovascular Disease
DX: I20.0 Unstable angina (principal); I10 Essential (primary) hypertension; E11.9 Type 2 diabetes mellitus without complications; E78.5 Hyperlipidemia, unspecified; E78.00 Pure hypercholesterolemia, unspecified; R26.2 Difficulty in walking, not elsewhere classified; H91.90 Unspecified hearing loss, unspecified ear; Z53.8 Procedure and treatment not carried out for other reasons; Z79.84 Long term (current) use of oral hypoglycemic drugs

== ENCOUNTER 2019-03-18 10:26 | Outpatient (CLI) | payer MEDICARE | END 2019-03-18 10:27 | disposition home or self-care (01) | LOC: C.LAB 10:26 | DX: E11.65 Type 2 diabetes mellitus with hyperglycemia (principal); D50.8 Other iron deficiency anemias; E78.2 Mixed hyperlipidemia ==